=== PATIENT | male | born 1940 | race Caucasian/White ===

== ENCOUNTER → 2018-05-04 08:39 | Outpatient (CLI) | payer MEDICARE, SELFPAY ==
[2018-05-04 10:01] LABS: Alanine Aminotransferase 36 IU/L (21-72); Aspartate Aminotransferase 38 IU/L (17-59); Blood Urea Nitrogen 14 mg/dL (9-20); Calcium 9.6 mg/dL (8.4-10.2); Carbon Dioxide 30 mmol/L (22-32); Chloride 103 mmol/L (98-107); Cholesterol 178 mg/dL (140-199); Estimated Glomerular Filt Rate > 60.0 mL/min (>60); Glucose 88 mg/dL (80-110); HDL Cholesterol 69 mg/dL (40-60); HEMOLYSIS < 15 (0-50); LDL Cholesterol Calculated 82 mg/dL (<100); Potassium 4.6 mmol/L (3.4-5.1); Sodium 143 mmol/L (137-145); Triglycerides 135 mg/dL (35-150)
[2018-05-04 10:30] LABS: Prostate Specific Antigen Scrn 2.54 ng/mL (0.1-4.0); TSH w/ Reflex to FT4 3.18 uIU/mL (0.47-4.68)
== END ==
PROVIDERS: PCP Internal Medicine; Visit Provider Internal Medicine
DX: I10 Essential (primary) hypertension (principal); E78.2 Mixed hyperlipidemia; Z00.00 Encounter for general adult medical examination without abnormal findings; I48.2 Chronic atrial fibrillation
CPT/HCPCS: 36415; 80048; 80061; 84443; 84450; 84460; G0103

== ENCOUNTER 2018-08-10 09:25 | Day surgery (SDC) | payer MEDICARE, SELFPAY ==
[2018-08-10] VITALS (12 sets, daily range): BP systolic 127–186; BP diastolic 90–113; PULSE 56–102; RESP 8–18; TEMP 36–36.9; O2SAT 95–100; BMI 27.3
--- NOTE | 2018-08-10 | PATH_ITS ---
[facility] Accession Number: [id number] . 01 Material submitted: . PART A: ASCENDING COLON POLYPS X4 PART B: SIGMOID COLON POLYP . 02 Diagnosis: A. Ascending Colon Polyps x4: Portions of tubular adenoma x5; negative for high-grade dysplasia. Superficial portion of colorectal mucosa x1 with a lymphoid aggregate and no significant histomorphologic abnormality. . B. Sigmoid Colon Polyp: Portions of tubular adenoma x 2; negative for high-grade dysplasia. MRV/08/11/2018 . 02 Electronically signed: . Kirsten Almaguer MD, Pathologist NPI- [id number] . 01 Gross description: . Received two formalin-filled containers both labeled with the patient's name. . A. In a container labeled ascending colon polyps x4 are multiple 0.1 to 0.4 cm portions of tissue. Entirely submitted in cassette A. B. In a container labeled sigmoid colon polyp are two less than 0.1 to 0.4 cm portions of tissue. Entirely submitted in cassette B. ([id number]) /[facility] . 02 Pathologist provided ICD-10: K63.5 . 02 CPT . 762533, [id number] Performed at: 01 [facility] [address] [facility], [place], [place] [id number] MD Yehuda Morataya MD Phone: [phone] Performed at: 02 [facility] [address] [place], [place] [id number] MD Shawanda Whyte MD Phone: [phone]
[2018-08-10] MEDS: SODIUM CHLORIDE 0.9% 1,000 ML 42 ML IV (10:31)
--- NOTE | 2018-08-10 11:11 | PM.HP.1 ---
History of Present Illness Date Patient Seen: 08/10/18 Time Patient Seen: 11:11 Chief complaint: [id number] COLONOSCOPY W/POSS BX Narrative: History of polyps Patient History Medical History Hypertension (Acute) Surgical History Stented coronary artery (Acute) Family & Social History Social History: household members spouse Meds Home Medications Medication Instructions Recorded Confirmed Type CHOLECALCIFEROL (VITAMIN D3) 400 iu PO #0 11/13/10 History (Vitamin D3) FELODIPINE (Felodipine ER) 10 mg PO Q DAY #0 11/13/10 History LISINOPRIL (Zestril / Prinivil) 30 mg Q DAY #0 11/13/10 History aspirin 81 mg PO QDAY #0 05/24/13 History rosuvastatin [Crestor] 5 mg PO QDAY #0 tab 05/24/13 History Allergies Allergy/AdvReac Type Severity Reaction Status Date / Time Penicillins [PENICILLINS] Allergy Unknown just Unverified 12/22/17 11:51 regular penicillian gives diarrhea Exam Vital Signs (past 8 hours): - 08/10/18 10:09 Temperature 96.8 F L Pulse Rate 91 H Respiratory Rate 16 Blood Pressure 186/110 H Pulse Oximetry 100 Oxygen Delivery Method Room Air Narrative Exam Narrative: Oropharynx free of lesions Chest clear to auscultation and percussion Cardiac exam reveals no S3 or murmur Assessment & Plan Plan: Assessment/Plan Narrative: History of adenomatous colon polyps. Need for follow-up colonoscopy. Risks, benefits, alternatives have been explained.
--- NOTE | 2018-08-10 11:12 | PM.OP.ENDO ---
Operative Date/Time/Diagnoses Date of procedure: 08/10/18 Time of procedure: 11:46 Pre-op diagnosis: See indication and findings Procedure & Clinicians Study performed: Colonoscopy Same procedure as scheduled: Yes Indications: History of colon polyps Surgeon: Manuel Andrade Procedure Notes Procedure in detail: After informed consent was obtained the patient was placed in left lateral decubitus position. The video colonoscope was introduced the rectum slowly advanced to the cecum. Preparation was good. On slow withdrawal mucosa was carefully examined. Scope was removed patient tolerated the procedure well. Blood loss none Complications none Sedation Versed 5 mg fentanyl 100 mcg IV titration Total sedation time 19 min Findings 1. Four polyps in the ascending and proximal transverse colon ranging in size from 3-8 mm. All were Jumbo biopsy did removed completely even if necessary in piecemeal fashion. 2. 10 mm polyp in the sigmoid colon at 25 cm. This was cold snared removed completely 3. Extensive diverticulosis with large diverticula throughout the entire colon 4. Otherwise negative colonoscopy to cecum Will be in touch regarding his pathology results. Given his age this could be is last colonoscopy but with having 5 reasonable size polyps we may want to repeat 1 more time in 3 years.
[2018-08-10] MEDS: fentaNYL 250 MCG/5 ML INJ IV (11:45)
[2018-08-10] MEDS: MIDAZOLAM 5 MG/5 ML VIAL IV (11:45)
--- NOTE | 2018-08-10 11:59 | SUR.PHASEI ---
MD Andrade at bedside and aware of pt vital signs and cardiac rhythm. Pt asymptomatic at this time.
--- NOTE | 2018-08-10 12:26 | SUR.PHASEI ---
PER DR FRANCES, DR. FRANCES SPOKE WITH SEB COONEY AND WAS ADVISED PT HAS HX OF AFIB. PER DR FRANCES, CALL PCP OFFICE AND GET DOSAGE AMOUNT OF PT PRESCRIBED METOPROLOL AND GIVE PT PO DOSE OF MOTOPROLOL PRIOR TO BEING DC TO HOME. UNABLE TO REACH PCP AT THIS TIME THEY ARE UNAVAILALBE AND ON LUNCH BREAK. WILL ATTEMPT TO REACH PT PHARMACY TO OBTAIN DOSAGE AMOUNT OF METOPROLOL.
--- NOTE | 2018-08-10 12:28 | SUR.PHASEI ---
PT IN STABLE CONDITION, VSS. BEDSIDE REPORT GIVEN TO JE ANDRES AT THIS TIME. PT SITTING UP IN BED AND TALKING TO NURSE.
[2018-08-10] MEDS: METOPROLOL IR 50 MG TABLET PO (12:55)
--- NOTE | 2018-08-10 14:01 | SUR.PHASEII ---
DR FRANCES SPOKE WITH PT AND REGARDING NEED FOR FOLLOW UP WITH DR COONEY (PTS PCP) TOMORROW . STATES SHE WILL MAKE THAT APPOINTMENT SOON THEY GET HOME.
== END 2018-08-10 14:01 | disposition home or self-care (01) ==
PROVIDERS: PCP Internal Medicine; Visit Provider Internal Medicine Gastroenterology
PROC: 0DJD8ZZ Inspection of Lower Intestinal Tract, Via Natural or Artificial Opening Endoscopic (ICD-10-PCS; CPT 45378; principal; 2018-08-10 11:00)
DX: Z86.010 Personal history of colon polyps (principal); K57.30 Diverticulosis of large intestine without perforation or abscess without bleeding; D12.2 Benign neoplasm of ascending colon; D12.5 Benign neoplasm of sigmoid colon; I10 Essential (primary) hypertension
CPT/HCPCS: 45385; 45380; 88305; J2250; J3010